=== PATIENT | male | born 1965 | race Caucasian/White ===

== ENCOUNTER 2019-03-30 05:31 | Day surgery (SDC) | payer BC ==
[2019-03-29 10:57] LABS: BASOPHILS % (AUTO) 0.7 % (0-1); EOSINOPHILS # (AUTO) 0.3 X10'3 (0-0.9); EOSINOPHILS % (AUTO) 3.6 % (0-6); LYMPHOCYTES # (AUTO) 1.5 X10'3 (1.1-4.8); LYMPHOCYTES % (AUTO) 19.8 % (21-51); MEAN CORPUSCULAR HEMOGLOBIN 32.2 PG (27.0-31.0); MEAN CORPUSCULAR HGB CONC 34.6 g/dL (33.0-36.5); MEAN CORPUSCULAR VOLUME 93.2 FL (78-98); MEAN PLATELET VOLUME 7.6 FL (7.4-10.4); MONOCYTES # (AUTO) 0.9 X10'3 (0-0.9); NEUTROPHILS # (AUTO) 4.7 X10'3 (1.8-7.7); NEUTROPHILS % (AUTO) 63.9 % (42-75); PRE OP HEMATOCRIT 45.8 % (42.0-52.0); PRE OP HEMOGLOBIN 15.8 g/dL (14.0-17.9); PRE OP PLATELET COUNT 209 X10'3 (140-440); RED BLOOD COUNT 4.92 X10'6 (4.70-6.10)
[2019-03-29 11:17] LABS: ALBUMIN 3.5 G/DL (3.4-5.0); ALKALINE PHOSPHATASE 105 IU/L (46-116); BLOOD UREA NITROGEN 13 MG/DL (7-18); BUN/CREATININE RATIO 13.1 (5.4-32.0); CALCIUM 8.5 MG/DL (8.5-10.1); CHLORIDE 106 MMOL/L (99-107); CREATININE 0.99 MG/DL (0.60-1.10); PRE OP ALT 58 U/L (30-65); PRE OP ANION GAP 8 (8-16); PRE OP AST 25 U/L (10-37); PRE OP BILIRUB, TOTAL 0.4 MG/DL (0.0-1.0); PRE OP GLUCOSE 95 MG/DL (70-104); PRE OP POTASSIUM 3.8 MMOL/L (3.4-5.1); PRE OP SODIUM 141 MMOL/L (135-145); TOTAL CARBON DIOXIDE 26.7 MMOL/L (24-32); eGFR 79 ML/MIN
[2019-03-30] VITALS (20 sets, daily range): BP systolic 91–127; BP diastolic 63–78
[~2019-03-30] VITALS: Ht 188 cm; Wt 116.7 kg
[~2019-03-30 05:31] MED LIST: AZIT500T5 PO; ceFAZolin 2gm in dextrose, iso 100 ML IV ONE; famotidine 20mg tablet PO ONE; ringers solution, lacted 1,000 ML IV SCH
[2019-03-30] MEDS ORDERED: LIDOcaine 1% (10mg/ml) 2ml vial ONE (05:44)
[2019-03-30] MEDS ORDERED: LIDOcaine 1% 30ml preserv. free vial ONE (06:40)
[2019-03-30] MEDS ORDERED: BUPIVAcaine/PF 2.5 mg/ml (0.25%) 30ml vial ONE (06:40)
[2019-03-30] MEDS ORDERED: ROPIVAcaine 0.5% (5mg/ml) 30ml vial ONE (06:40)
[2019-03-30] MEDS ORDERED: ketorolac trometh. 30mg/ml inj. ONE (06:40)
[2019-03-30] MEDS ORDERED: fentaNYL /PF 50mcg/ml 5ml ampule ONE (07:23)
[2019-03-30] MEDS ORDERED: midazolam 2 mg/2 ml injection ONE (07:23)
[2019-03-30] MEDS ORDERED: sevoflurane 250ml liquid IH ONE (07:35)
[2019-03-30] MEDS ORDERED: ringers solution, lacted 1,000 ML IV SCH (08:29)
[2019-03-30] MEDS ORDERED: proCHLORperazine 10 MG/2 ml inj IV PRN (08:30)
[2019-03-30] MEDS ORDERED: ondansetron/PF 4mg/2ml inj IV PRN (08:30)
[2019-03-30] MEDS ORDERED: morphine 4 MG/ML inj SYRINge IV PRN ×2 (08:30)
[2019-03-30] MEDS ORDERED: meperidine/PF 25mg/ml syringe IV PRN ×2 (08:30)
[2019-03-30] MEDS ORDERED: propofol inj 20 ML IV ONE (08:35)
[2019-03-30] MEDS ORDERED: LIDOcaine 2% (20mg/ml) 5ml vial ONE (08:35)
[2019-03-30] MEDS ORDERED: neostigmine methylsulfate 1 MG/ML 10ml vial ONE (08:35)
[2019-03-30] MEDS ORDERED: rocuronium 10mg/ml inj IV ONE (08:35)
[2019-03-30] MEDS ORDERED: ondansetron/PF 4mg/2ml inj ONE (08:35)
[2019-03-30] MEDS ORDERED: dexamethasone sod phosphate 4mg/ml inj. ONE (08:35)
[2019-03-30] MEDS ORDERED: glycopyrrolate 0.2mg/ml inj ONE (08:35)
--- NOTE | 2019-03-30 09:10 | NUR ---
Received from OR via BED , accompanied by Anesthesiologist DR CULLEN and report given by Anesthesiolgist. PATIENT WAKING UP, DENIES PAIN, V/S WNL, NEUROVASCULAR CHECKS INTACT, 20G PIV LUE, SCD ON, 3 BANDAIDS TO LAP SIGHTS OF ABDOMEN CDI
[2019-03-30] MEDS: meperidine/PF 25mg/ml syringe IV PRN ×2 (09:36→09:42)
[2019-03-30] MEDS ORDERED: oxyCODONE/APAP 10/325mg tablet PO ONE (09:40)
--- NOTE | 2019-03-30 11:50 | NUR ---
PATIENT WAKING UP, DENIES PAIN, V/S WNL, NEUROVASCULAR CHECKS INTACT, 20G PIV LUE, SCD ON, 3 BANDAIDS TO LAP SIGHTS OF ABDOMEN CDI. PATIENT STILL UNABLE TO PEE. TRANSFERED TO [address]
--- NOTE | 2019-03-30 12:00 | NUR ---
PATIENT ARRIVED TO 245A ON GURNEY, VSS CHARTED, ABD SOFT TO TOUCH, LAP SITES X3, CDI. PIV TO LEFT HAND, IVF INFUSING. PATIENT HAS YET TO VOID, POST-OPERATIVELY, WILL CONTINUE TO MONITOR.
--- NOTE | 2019-03-30 13:20 | NUR ---
PATIENT UNABLE TO VOID, BLADDER SCAN DONE 500ML LIGHT YELLOW DRAINAGE NOTED. STRAIGHT CATH ORDERED. PATIENT TOLERATED WELL.
--- NOTE | 2019-03-30 14:12 | NUR ---
PATIENT DC'D TO PERSONAL VEHICLE WITH ALL PERSONAL BELONGINGS ACCOMPANIED BY STAFF AND . PIV DC'D CATH TIP INTACT.
== END 2019-03-30 14:15 | disposition home or self-care (01) ==
LOC: PAS 05:31
PROVIDERS: ATTEND Surgery
DX: K42.0 Umbilical hernia with obstruction, without gangrene (principal); F41.8 Other specified anxiety disorders; M19.90 Unspecified osteoarthritis, unspecified site; Z79.899 Other long term (current) drug therapy; F41.9 Anxiety disorder, unspecified; Z72.89 Other problems related to lifestyle
CPT/HCPCS: 36415; 49653; 64488; 80053; 82948; 85025; 93005; C1781; J0690; J1100; J1885; J2001; J2175; J2250; J2405; J2704; J2710; J3010; J3490; J7120; J2795

== ENCOUNTER 2019-03-31 23:40 | Emergency (ER) | payer BC ==
[~2019-03-31] VITALS: Ht 188 cm; Wt 115.9 kg
[~2019-03-31 23:40] MED LIST changes: -ceFAZolin 2gm in dextrose, iso 100 ML IV ONE; -famotidine 20mg tablet PO ONE; -ringers solution, lacted 1,000 ML IV SCH
[2019-04-01] MEDS ORDERED: normal saline 1000ML IV soln IV ONE (00:15)
[2019-04-01 00:34] LABS: BASOPHILS % (AUTO) 0.2 % (0-1); EOSINOPHILS % (AUTO) 0.2 % (0-6); HEMATOCRIT 47.5 % (42.0-52.0); HEMOGLOBIN 16.1 g/dl (14.0-17.9); LYMPHOCYTES # (AUTO) 1.3 X10'3 (1.1-4.8); LYMPHOCYTES % (AUTO) 11.3 % (21-51); MEAN CORPUSCULAR HEMOGLOBIN 31.9 PG (27.0-31.0); MEAN CORPUSCULAR HGB CONC 33.9 g/dL (33.0-36.5); MEAN CORPUSCULAR VOLUME 93.9 FL (78-98); MEAN PLATELET VOLUME 7.9 FL (7.4-10.4); MONOCYTES # (AUTO) 0.6 X10'3 (0-0.9); MONOCYTES % (AUTO) 5.3 % (2-12); NEUTROPHILS # (AUTO) 9.6 X10'3 (1.8-7.7); PLATELET COUNT 234 X10'3 (140-440); RED BLOOD COUNT 5.05 X10'6 (4.70-6.10); RED CELL DISTRIBUTION WIDTH 13.2 % (11.5-14.5); WHITE BLOOD COUNT 11.6 X10'3 (4.5-11.0)
[2019-04-01 00:41] VITALS: BP 112/65
[2019-04-01 00:42] LABS: ALANINE AMINOTRANSFERASE 127 U/L (12-78); ALBUMIN 3.7 G/DL (3.4-5.0); ALKALINE PHOSPHATASE 113 IU/L (46-116); ANION GAP 9 (8-16); ASPARTATE AMINO TRANSFERASE 51 U/L (10-37); BILIRUBIN,TOTAL 0.2 MG/DL (0.1-1.0); BLOOD UREA NITROGEN 13 MG/DL (7-18); BUN/CREATININE RATIO 12.3 (5.4-32.0); CALCIUM 8.5 MG/DL (8.5-10.1); CHLORIDE 104 MMOL/L (99-107); CREATININE 1.06 MG/DL (0.60-1.10); GLUCOSE 135 MG/DL (70-104); MAGNESIUM 1.7 MG/DL (1.5-2.4); POTASSIUM 3.5 MMOL/L (3.5-5.1); SODIUM 139 MMOL/L (135-145); TOTAL CARBON DIOXIDE 26.4 MMOL/L (24-32); TOTAL PROTEIN 7.5 G/DL (6.4-8.2); eGFR 73 ML/MIN
[2019-04-01] MEDS ORDERED: ondansetron/PF 4mg/2ml inj IV ONE (01:05)
[2019-04-01] MEDS ORDERED: ketorolac trometh. 30mg/ml inj. IV ONE (01:05)
[2019-04-01 01:20] LABS: PARTIAL THROMBOPLASTIN TIME 28 SECONDS (22-32)
[2019-04-01] MEDS ORDERED: CefTRIAXone/D5W-Rocephin 1gm 50 ML IV ONE (01:40)
[2019-04-01] MEDS ORDERED: POLY17PO10 PO (02:05)
[2019-04-01] MEDS ORDERED: PHE12.5T PO (02:05)
[2019-04-01] MEDS ORDERED: LEVO750T21 PO (02:05)
== END 2019-04-01 02:41 | disposition home or self-care (01) ==
LOC: ER 23:40
DX: J18.9 Pneumonia, unspecified organism (principal); K59.00 Constipation, unspecified; R11.10 Vomiting, unspecified; Z79.899 Other long term (current) drug therapy
CPT/HCPCS: 36415; 71045; 74176; 80053; 83735; 85025; 85610; 85730; 96361; 96365; 96375; 99284; J0696; J1885; J2405; J7030

== ENCOUNTER 2020-10-02 16:14 | Emergency (ER) | payer BC ==
[~2020-10-02] VITALS: Ht 190.5 cm; Wt 113.6 kg
[~2020-10-02 16:14] MED LIST changes: -AZIT500T5 PO; +AZIT500T9 PO; +PROM12.512 PO
== END 2020-10-02 17:06 | disposition home or self-care (01) ==
LOC: ER 16:14
DX: U07.1 COVID-19 (principal); R05 Cough; R53.81 Other malaise; Z79.2 Long term (current) use of antibiotics
CPT/HCPCS: 36415; 87635; 99283